=== PATIENT | female | born 1950 | race Caucasian/White ===

== ENCOUNTER 2018-10-02 20:13 | Emergency (ER) | payer OTHER, SELFPAY ==
[2018-10-02 20:28] VITALS: BP 148/77; PULSE 73; RESP 14; TEMP 38; O2SAT 96; BMI 26.6
--- NOTE | 2018-10-02 20:48 | ED.EAR ---
HPI - Ear Problem General Chief complaint: Ear Stated complaint: Right ear pain Time Seen by Provider: 10/02/18 20:35 Source: patient Mode of arrival: ambulatory Limitations: no limitations History of Present Illness HPI Narrative: 68-year-old female here for evaluation of right ear discomfort. She states that it has worsened throughout today after started this morning. She does state that over the past several days she has had other upper respiratory infection like symptoms. No left ear discomfort. Related Data Home Medications Medication Instructions Recorded Confirmed B complex-vitamin C-folic acid 1 tab PO QDAY 08/08/17 08/08/17 [Ruby-Shirlene] Coratin 1 tab PO QDAY 08/08/17 08/08/17 Coratin 2 tab PO QPM 08/08/17 08/08/17 Omegagenics Epa-Dha 720 (Fish Oil) 2 cap PO QDAY 08/08/17 08/08/17 Ubiquinol 200 mg PO QDAY 08/08/17 08/08/17 amlodipine 10 mg PO QDAY 08/08/17 08/08/17 clonidine 1 patch TOPICAL CRUZ 08/08/17 08/08/17 folic acid 1 mg PO QDAY 08/08/17 08/08/17 isosorbide mononitrate 30 mg PO QDAY 08/08/17 08/08/17 nebivolol [Bystolic] 10 mg PO QDAY 08/08/17 08/08/17 thyroid (pork) [Nature-Throid] 1 tab PO QDAY 08/08/17 08/08/17 Allergies Allergy/AdvReac Type Severity Reaction Status Date / Time acetaminophen [From Vicodin] Allergy Verified 08/08/17 11:35 codeine Allergy Verified 08/08/17 11:35 hydrocodone [From Vicodin] Allergy Verified 08/08/17 11:35 lisinopril Allergy Verified 08/08/17 11:35 Sulfa (Sulfonamide Allergy Verified 08/08/17 11:35 Antibiotics) diphenhydramine AdvReac Verified 08/08/17 11:35 [From Benadryl] contrast Allergy Uncoded 08/08/17 11:35 Review of Systems Constitutional Denies fever(s) ENT Ears, Nose, Mouth, and Throat: Reports otalgia (Right), Reports sinus pressure, Denies sore throat and Denies tongue swelling Cardiovascular Denies chest pain and Denies dyspnea Respiratory Denies dyspnea Gastrointestinal Gastrointestinal: Denies abdominal pain Musculoskeletal Denies myalgias and Denies arthralgias Integumentary/Breasts Denies new lesions and Denies rash Neurologic Denies behavioral changes Psychiatric Denies behavioral changes Hematologic/Lymphatic Denies easy bleeding and Denies easy bruising Allergic/Immunologic Denies tongue swelling [facility] Medical History Hypertension (Acute) Hypothyroid (Acute) Social History Smoking Status: Never smoker Social History Smoking Status: Never smoker Exam Initial Vital Signs Initial Vital Signs: Vital Signs Temperature 100.4 F H 10/02/18 20:28 Pulse Rate 73 10/02/18 20:28 Respiratory Rate 14 10/02/18 20:28 Blood Pressure 148/77 H 10/02/18 20:28 Pulse Oximetry 96 10/02/18 20:28 Const General: cooperative, comfortable, well developed, well groomed and No acute distress Orientation: alert, awake and oriented x3 HENMT Head: normal to inspection and normocephalic Ears: TM normal on the left and other (Redness in the upper portion of the right TM) Nose: external nose normal Face and sinus: normal facial exam Mouth: oral mucosae normal Teeth and gingiva: dentition normal Resp Effort & Inspection: normal respiratory effort Skin Lesions: no lesions Rashes: no rashes Neuro General: alert and awake Cognition: normal cognition Speech: speech normal Extrem General: normal to inspection and capillary refill normal Psych Appearance: grossly normal and well kempt Course Vital Signs - 8 hr 10/02/18 20:28 Temperature 100.4 F H Pulse Rate 73 Respiratory Rate 14 Blood Pressure 148/77 H Pulse Oximetry 96 Medical Decision Making MDM Narrative Medical decision making narrative: Patient with redness to the upper portion of the right tympanic membrane. There is no bulging of the TM. The external auditory canals unremarkable. I do suspect her symptoms are related to sinus congestion. We did discuss using decongestants. No indication for antibiotics. Patient was given return precautions and follow-up instructions. She expressed understanding and agreement plan. Discharge Plan Departure Patient Disposition: Home Clinical Impression: Otalgia of right ear Upper respiratory infection Qualifiers: URI type: unspecified URI Qualified Code(s): J06.9 - Acute upper respiratory infection, unspecified Discharge Date/Time: 10/02/18 20:55 Interventions: ED Discharge Assessment Last Done: 10/02/18 20:54 Instructions: DI for Viral Upper Respiratory Infection -- Adult, DI for Ear Pain-Adult Activity Restrictions/Additional Instructions: I recommend you start taking Claritin or Gini or Zyrtec like we discussed. You can also take the generic version of these medications. You can consider taking either Flonase or Nasonex as a nasal spray. You can also take Tylenol or ibuprofen for any pain. Return to the emergency department for any new or worsening symptoms Prescriptions: No Action clonidine 0.1 mg/24 hr patch weekly 1 patch Topical CRUZ RF: 0 amlodipine 10 mg tablet 10 mg PO QDAY RF: 0 nebivolol [Bystolic] 10 mg tablet 10 mg PO QDAY RF: 0 isosorbide mononitrate 30 mg tablet extended release 24 hr 30 mg PO QDAY RF: 0 folic acid 1 mg tablet 1 mg PO QDAY RF: 0 B complex-vitamin C-folic acid [Ruby-Shirlene] 0.8 mg tablet 1 tab PO QDAY RF: 0 thyroid (pork) [Nature-Throid] 65 mg tablet 1 tab PO QDAY RF: 0 Coratin tablet 2 tab PO QPM RF: 0 Coratin tablet 1 tab PO QDAY RF: 0 Omegagenics Epa-Dha 720 (Fish Oil) 2 cap PO QDAY RF: 0 Ubiquinol 200 mg tablet 200 mg PO QDAY RF: 0 Referrals: Genevieve Sen ND [Primary Care Provider] -
== END 2018-10-02 20:55 | disposition home or self-care (01) ==
PROVIDERS: Emergency Provider Emergency Medicine; PCP Naturopath
DX: H92.01 Otalgia, right ear (principal); J06.9 Acute upper respiratory infection, unspecified
CPT/HCPCS: 99282

== ENCOUNTER 2020-07-28 11:17 | Emergency (ER) | payer OTHER, SELFPAY ==
[2020-07-28 11:33] VITALS: BP 186/86; PULSE 78; RESP 14; TEMP 36.5; O2SAT 98
--- NOTE | 2020-07-28 12:24 | PC.NURSE ---
patient states she has a rash on her face. Rash is not visualized by this nurse. She states her face does not usually look like this. Provider at bedside.
--- NOTE | 2020-07-28 12:25 | ED.SKABFB ---
HPI - Skin/Abscess/Foreign Bdy General Chief complaint: Skin/Abscess/Foreign Body Stated complaint: rash on face Time Seen by Provider: 07/28/20 12:15 Source: patient Mode of arrival: Ambulatory Limitations: no limitations History of Present Illness HPI narrative: 69-year-old female here for evaluation of rash on her face. She stated that she started noticing it this morning. She has had no new exposures. No sick contacts. No problems breathing. No nausea or vomiting. She said that it was itching this morning and she felt like she had dry skin so she put some lotion over the area and that seems to have improved it. No vesicles. It is both sides of her face. Related Data Home Medications Medication Instructions Recorded Confirmed B complex-vitamin C-folic acid 1 tab PO QDAY 08/08/17 08/08/17 [Ruby-Shirlene] Coratin 1 tab PO QDAY 08/08/17 08/08/17 Coratin 2 tab PO QPM 08/08/17 08/08/17 Omegagenics Epa-Dha 720 (Fish Oil) 2 cap PO QDAY 08/08/17 08/08/17 Ubiquinol 200 mg PO QDAY 08/08/17 08/08/17 amlodipine 10 mg PO QDAY 08/08/17 08/08/17 clonidine 1 patch TOPICAL CRUZ 08/08/17 08/08/17 folic acid 1 mg PO QDAY 08/08/17 08/08/17 isosorbide mononitrate 30 mg PO QDAY 08/08/17 08/08/17 nebivolol [Bystolic] 10 mg PO QDAY 08/08/17 08/08/17 thyroid (pork) [Nature-Throid] 1 tab PO QDAY 08/08/17 08/08/17 Previous Rx's Medication Instructions Recorded prednisone 20 mg PO DAILY 3 Days #3 tab 07/28/20 Allergies Allergy/AdvReac Type Severity Reaction Status Date / Time codeine Allergy Verified 08/08/17 11:35 hydrocodone [From Vicodin] Allergy Verified 08/08/17 11:35 lisinopril Allergy Verified 08/08/17 11:35 Sulfa (Sulfonamide Allergy Verified 08/08/17 11:35 Antibiotics) diphenhydramine AdvReac Verified 08/08/17 11:35 [From Benadryl] contrast Allergy Uncoded 08/08/17 11:35 Review of Systems Constitutional Constitutional: Denies fatigue and Denies headache(s) Eyes Eyes: Denies blurry vision, Denies change in vision and Denies itchy eyes ENT Ears, Nose, Mouth, and Throat: Denies headache(s), Denies lip swelling, Denies sinus pain, Denies sore throat and Denies throat swelling Cardiovascular Cardiovascular: Denies chest pain and Denies dyspnea Respiratory Respiratory: Denies dyspnea Gastrointestinal Gastrointestinal: Denies abdominal pain, Denies nausea and Denies vomiting Genitourinary Genitourinary: Denies dysuria Genitourinary: Denies dysuria Integumentary/Breasts Skin/Breast: Reports rash Neurologic Neurologic: Denies behavioral changes and Denies headache(s) Psychiatric Psychiatric: Denies behavioral changes Endocrine Endocrine: Denies fatigue Hematologic/Lymphatic On Anticoagulants: No Allergic/Immunologic Allergic/Immunologic: Denies urticaria, Denies itchy eyes, Denies lip swelling and Denies throat swelling Patient History Medical History Hypertension Hypothyroid Social History Smoking Status: Never smoker Smoking Status: Never smoker alcohol intake frequency: 0-2 drinks per day Substance Use Type: does not use Exam Initial Vital Signs Initial Vital Signs: Vital Signs Temperature 97.7 F 07/28/20 11:33 Pulse Rate 78 07/28/20 11:33 Respiratory Rate 14 07/28/20 11:33 Blood Pressure 186/86 H 07/28/20 11:33 Pulse Oximetry 98 07/28/20 11:33 Const General: cooperative, comfortable and well developed Limitations: mental status not altered [facility] Head: normal to inspection and normocephalic Eyes General: appearance normal, both eyes and all related structures Skin Other: Mild redness bilateral face to include cheeks and mandible and neck. Neuro General: patient alert, patient awake and patient oriented x3 Cognition: normal cognition Speech: speech normal Extrem General: normal to inspection and capillary refill normal Psych Appearance: grossly normal and well kempt Course Vital Signs Vital signs: Vital Signs - 8 hr 07/28/20 11:33 07/28/20 12:30 Temperature 97.7 F Pulse Rate 78 60 Respiratory Rate 14 19 Blood Pressure 186/86 H 153/69 H Pulse Oximetry 98 98 MDM - Skin/Abscess/Foreign Bdy MDM Narrative Medical decision making narrative: Patient does have very mild redness both sides of her face. There are no vesicles concerning for zoster. Does not know the exact cause of the symptoms. She is afebrile. No signs of anaphylaxis. She would like to hold on any prednisone for now because she had been on in the past secondary to a prior cancer diagnosis. Will give her prescription just in case her symptoms do not improve. She states she cannot take Benadryl because it gives her rash. I feel patient could be discharged home without further workup. She was given return precautions. She expressed understanding and agreement. Discharge Plan Departure Patient Disposition: Home Clinical Impression: Rash Instructions: DI for Rash Activity Restrictions/Additional Instructions: I recommend that you keep your face moisturize like we discussed. Use the prednisone if your symptoms do not improve like we discussed. Contact your primary provider for follow-up. Return to the emergency department for any new or worsening symptoms Prescriptions: New prednisone 20 mg tablet 20 mg PO DAILY 3 Days Qty: 3 RF: 0 No Action clonidine 0.1 mg/24 hr patch weekly 1 patch Topical CRUZ RF: 0 amlodipine 10 mg tablet 10 mg PO QDAY RF: 0 nebivolol [Bystolic] 10 mg tablet 10 mg PO QDAY RF: 0 isosorbide mononitrate 30 mg tablet extended release 24 hr 30 mg PO QDAY RF: 0 folic acid 1 mg tablet 1 mg PO QDAY RF: 0 B complex-vitamin C-folic acid [Ruby-Shirlene] 0.8 mg tablet 1 tab PO QDAY RF: 0 thyroid (pork) [Nature-Throid] 65 mg tablet 1 tab PO QDAY RF: 0 Coratin tablet 2 tab PO QPM RF: 0 Coratin tablet 1 tab PO QDAY RF: 0 Omegagenics Epa-Dha 720 (Fish Oil) 2 cap PO QDAY RF: 0 Ubiquinol 200 mg tablet 200 mg PO QDAY RF: 0 Referrals: Genevieve Sen [place] [Primary Care Provider] -
[2020-07-28 12:30] VITALS: BP 153/69; PULSE 60; RESP 19; O2SAT 98
== END 2020-07-28 12:33 | disposition home or self-care (01) ==
PROVIDERS: Emergency Provider Emergency Medicine; PCP Naturopath
DX: R21 Rash and other nonspecific skin eruption (principal)
CPT/HCPCS: 99281

== ENCOUNTER 2024-07-12 14:34 | Emergency (ER) | payer OTHER, SELFPAY ==
[2024-07-12 14:43] VITALS: BP 128/63; PULSE 78; RESP 18; TEMP 36.7; O2SAT 99; BMI 25.4
--- NOTE | 2024-07-12 14:59 | DI.RAD.S_ITS ---
PROCEDURE: XR CHEST 2V INDICATIONS: cough, fatigue, fever TECHNIQUE: 2 views of the chest were acquired. COMPARISON: None. FINDINGS: Surgical changes and devices: None. Lungs and pleura: Lungs are clear. No pleural effusions or pneumothorax. Mediastinum: Mediastinal contours are normal. Heart size is normal. Bones and chest wall: No suspicious bony abnormalities. Soft tissues appear unremarkable. IMPRESSION: No acute cardiopulmonary abnormality is seen. Approved by: Jim Bennett M.D. on 07/12/2024 at 15:33
[2024-07-12 15:43] LABS: Influenza A - CEPHEID Flu A NEGATIVE (NEGATIVE); Influenza B - CEPHEID Flu B NEGATIVE (NEGATIVE); Respiratory Syncytial Virus Negative (Negative)
[2024-07-12 15:49] LABS: COVID-19 CEPHEID 4-PLEX PCR Negative (Negative)
--- NOTE | 2024-07-12 17:39 | PC.NURSE ---
Pt reports 12 days of cough, fever,loose stool, body aches, increase in lymphedema. Pt states she saw her kidney doctor 2 weeks ago; denies being in contact with anyone sick. States is not sick. Pt reports history of uterine cancer that has affected her kidneys and lower extremities.
--- NOTE | 2024-07-12 17:46 | ED_ITS ---
<Statement entered by Tyshawn Tadeo DO - 07/12/24 20:47> Dr. Tadeo: I was immediately available in the department for consultation. I did not actually see the patient. HPI - URI/Sore Throat General Chief Complaint: Upper Respiratory Symptoms Stated Complaint: Cough, body aches Time Seen by Provider: 07/12/24 17:34 Source: patient Mode of arrival: Ambulatory History of Present Illness HPI Narrative: Ms. Golden is a very pleasant 73-year-old female with a past medical history of uterine cancer, autoimmune hemolytic anemia, HTN, CKD, bilateral lower extremity lymphedema who presents to the emergency department for nocturnal fevers, fatigue, body aches, cough x 12 days. Chronic lower extremity lymphedema is secondary to pelvic lymph node resection during prior episode of urine cancer. Patient denies any known sick contacts. Reports that every evening she has an elevated temperature of about 101 but it normalizes during the day. Reports feeling severe dyspnea on exertion but her shortness of breath resolves as soon as she sits still or lays flat. She notices that her lower leg swelling is worse in her lower legs are hurting more. She reports a dry cough, scratchy throat, chills, mild headache, scalp sensitivity, sweating, low appetite, loose bowels, leg weakness. She denies chest pain, shortness of breath at rest, pain or redness of a unilateral leg, abdominal pain, nausea, vomiting, constipation, dysuria. Denies sore throat, ear pain. Her primary care doctor is a naturopathic doctor, Dr. Genevieve Sen, and her oven dumper is Dr. El Beck. Related Data Home Medications Medication Instructions Recorded Confirmed Coratin 1 tab PO QDAY 08/08/17 08/08/17 Coratin 2 tab PO QPM 08/08/17 08/08/17 Omegagenics Epa-Dha 720 (Fish Oil) 2 cap PO QDAY 08/08/17 08/08/17 Ubiquinol 200 mg PO QDAY 08/08/17 08/08/17 amlodipine 10 mg tablet 10 mg PO QDAY 08/08/17 08/08/17 clonidine 0.1 mg/24 hr weekly 1 patch topical CRUZ 08/08/17 08/08/17 transdermal patch folic acid 1 mg tablet 1 mg PO QDAY 08/08/17 08/08/17 isosorbide mononitrate 30 mg 30 mg PO QDAY 08/08/17 08/08/17 tablet,extended release 24 hr nebivolol 10 mg tablet 10 mg PO QDAY 08/08/17 08/08/17 thyroid (pork) 65 mg tablet 1 tab PO QDAY 08/08/17 08/08/17 vitamin B complex-vitamin C-folic 1 tab PO QDAY 08/08/17 08/08/17 acid 0.8 mg tablet Previous Rx's Medication Instructions Recorded cephalexin 500 mg capsule 500 mg PO Q12H 7 days #14 caps 07/12/24 Allergies Allergy/AdvReac Type Severity Reaction Status Date / Time codeine Allergy Verified 08/08/17 11:35 hydrocodone [From Vicodin] Allergy Verified 08/08/17 11:35 lisinopril Allergy Verified 08/08/17 11:35 Sulfa (Sulfonamide Allergy Verified 08/08/17 11:35 Antibiotics) diphenhydramine AdvReac Verified 08/08/17 11:35 [From Benadryl] contrast Allergy Uncoded 08/08/17 11:35 Review of Systems Review of Systems ROS Unobtainable: All systems reviewed & are unremarkable except as noted in HPI and below Patient History Medical History Hypothyroid Hypertension Social History Smoking Status: Never smoker Smoking Status: Never smoker alcohol intake frequency: 0-2 drinks per day Exam Narrative Exam Narrative: GENERAL: 73 year old patient appears stated age. Well-developed patient, in no acute distress. HEAD: Atraumatic. Normocephalic. EYES:No scleral icterus. No injection or drainage. ENT: Nose without bleeding, purulent drainage. Throat without erythema, tonsillar hypertrophy or exudate. Airway patent. NECK: Trachea midline. Cervical ROM intact. CARDIOVASCULAR: Regular rate and rhythm. RESPIRATORY: ?Nonlabored respirations. ?Speaking in clear, full sentences. ?Clear to auscultation. Breath sounds equal bilaterally. No wheezes, rales, or rhonchi. ? GASTROINTESTINAL: Abdomen soft, non-tender, nondistended. EXTREMITIES: Bilateral, nonpitting lower extremity edema. No erythema or increased warmth of the lower extremities. There strong palpable DP and PT pulses bilaterally. NEURO: AOx3. ?Clear speech. ?Moves all 4 extremities appropriately. Ambulates independently. SKIN: Pale. No rash or erythema of visible areas Initial Vital Signs Initial Vital Signs: Vital Signs Temperature 98.0 F 07/12/24 14:43 Pulse Rate 78 07/12/24 14:43 Respiratory Rate 18 07/12/24 14:43 Blood Pressure 128/63 07/12/24 14:43 Pulse Oximetry 99 07/12/24 14:43 Oxygen Delivery Method Room Air 07/12/24 14:43 Course Orders Ordered: ED Orders 07/12/24 14:50 Covid-19 + FLU A/B + RSV - PCR Stat 07/12/24 14:59 XR chest 2V Stat 07/12/24 18:02 Complete Blood Count AUTO DIFF Stat Comprehensive Metabolic Panel Stat Lactate (Lactic Acid) Stat NT-proBNP (BNP-Adult 18+) Stat PTT Partial Thromboplastin [place] Stat Procalcitonin Stat Prothrombin Time INR Stat Troponin & CK Cardiac Panel Stat Urinalysis and Microscopic Stat Urine Culture Stat EKG-12 Lead Stat 07/12/24 18:25 Blood Culture Stat Sodium Chloride (Normal Saline 0.9%) 1,000 mls @ 1,000 mls/hr IV BOLUS ONE Stop: 07/12/24 20:08 Discontinued Medications Ceftriaxone Sodium 1,000 mg/ (Sodium Chloride) 100 mls @ 200 mls/hr IV NOW ONE Stop: 07/12/24 19:10 Vital Signs Vital signs: Vital Signs - 8 hr 07/12/24 14:43 07/12/24 18:43 Temperature 98.0 F 98.3 F Pulse Rate 78 76 Respiratory Rate 18 16 Blood Pressure 128/63 114/64 Pulse Oximetry 99 100 Oxygen Delivery Method Room Air Room Air MDM - URI/Sore Throat Medical Records Attestation: I reviewed the patient's medical records. Medical records narrative: ED visit 08/08/2017, 10/02/2018, 07/28/2020. Lab Data 07/12/24 18:02 07/12/24 18:02 Labs: Lab Results 07/12/24 07/12/24 Range/Units 14:50 18:02 WBC 9.9 (4.5-11.0) X10^3/uL RBC 4.00 (4.0-5.2) X10^6/uL Hgb 12.0 (12.0-16.0) g/dL Hct 35.7 L (36-46) % MCV 89.3 (80-100) fL MCH 30.0 (26-34) PG MCHC 33.6 (30-36) % RDW 13.1 (11.6-14.8) % Plt Count 354 (150-400) X10^3/uL Neut % (Auto) 73.7 (50-75) % Lymph % (Auto) 14.3 L (25-40) % [place] % (Auto) 10.9 (3-14) % Eos % (Auto) 0.4 L (2-4) % Baso % (Auto) 0.7 (0-2) % Neut # (Auto) 7300 H (8123-1481) /uL Lymph # (Auto) 1400 (6108-4704) /uL [place] # (Auto) 1100 H (0-900) /uL Eos # (Auto) 0 (0-450) /uL Baso # (Auto) 100 (0-100) /uL PT 13.4 H (9.4-12.5) SECONDS INR 1.2 (0.9-1.3) APTT 34 (25.1-36.5) SECONDS Sodium 136 L (137-145) mmol/L Potassium 5.3 H (3.4-5.1) mmol/L Chloride 103 (98-107) mmol/L Carbon Dioxide 23 (22-32) mmol/L BUN 46 H (7-17) mg/dL Creatinine 1.80 H (0.52-1.04) mg/dL Estimated GFR 29 L (>60) mL/min BUN/Creatinine Ratio 25.6 H (6-22) Glucose 101 (80-110) mg/dL Lactate 1.2 (0.7-2.1) mmol/L Calcium 9.2 (8.4-10.2) mg/dL Total Bilirubin 0.9 (0.2-1.3) mg/dL AST 171 H (14-36) IU/L ALT 172 H (<35) IU/L Alkaline Phosphatase 81 (38-126) U/L Total Creatine Kinase 31 (30-135) U/L Troponin I < 0.012 (0.01-0.034) ng/mL NT-Pro-B Natriuret Pep 602 H (<450) pg/mL Total Protein 7.0 (6.3-8.2) g/dL Albumin 3.8 (3.5-5.0) g/dL Globulin 3.2 (1.7-4.1) g/dL Albumin/Globulin Ratio 1.2 (1.0-2.8) Procalcitonin 0.176 (<0.5) ng/mL Urine Color Yellow Urine Appearance Clear Urine pH 5.5 (4.5-8.0) Ur Specific [place] 1.025 (1.000-1.035) Urine Protein 2+ H (Negative) Urine Glucose (UA) Negative (Negative) g/dL Urine Ketones Trace H (NEGATIVE) Urine Occult Blood Negative (Negative) Urine Nitrate Positive H (Negative) Urine Bilirubin Negative (NEGATIVE) Urine Urobilinogen 1.0 (0.2) E.U./dL Ur Leukocyte Esterase Negative (NEGATIVE) Urine RBC None seen (0-5/HPF) Urine WBC 5-10/hpf H (0-5/HPF) Ur Squamous Epith Cells 1-5 /hpf (0-5/HPF) Amorphous Sediment 1+ Urine Bacteria Many (>30) H (None) Ur Culture Indicated? Specimen cultured Vol Urine Centrifuged 10ml (spun) SARS-CoV-2 (PCR) Negative (Negative) Influenza A (RT-PCR) Flu a negative (NEGATIVE) Influenza B (RT-PCR) Flu b negative (NEGATIVE) RSV (PCR) Negative (Negative) Imaging Data Chest x-ray: Radiologist's Impression: PROCEDURE: XR CHEST 2V INDICATIONS: cough, fatigue, fever TECHNIQUE: 2 views of the chest were acquired. COMPARISON: None. FINDINGS: Surgical changes and devices: None. Lungs and pleura: Lungs are clear. No pleural effusions or pneumothorax. Mediastinum: Mediastinal contours are normal. Heart size is normal. Bones and chest wall: No suspicious bony abnormalities. Soft tissues appear unremarkable. IMPRESSION: No acute cardiopulmonary abnormality is seen. MDM Narrative Medical decision making narrative: 73-year-old female with a past medical history of uterine cancer, autoimmune hemolytic anemia, HTN, CKD, bilateral lower extremity lymphedema who presents to the emergency department for nocturnal fevers, fatigue, body aches, cough x 12 days. Differential diagnosis includes but is not limited to anemia, neutropenia, pneumonia, viral syndrome, tuberculosis, CHF, fluid overload, etc. On exam patient is in no acute distress, nontoxic appearing, initial triage vital signs all within normal limits. She does become visibly short of breath with exertion but has no increased work of breathing sitting at rest. She is bilateral lower extremity nonpitting edema, no signs of cellulitis, nontender, she is strong peripheral pulses. Viral swab and chest x-ray were obtained in triage and are both negative. Concern for persistent nocturnal fevers and a patient with a history of cancer, increased lower extremity edema and dyspnea on exertion. We will check CBC, CMP, BNP, troponin, EKG, blood cultures. Labs reveal normal WBC count 9.9. Hemoglobin 12.0. Sodium 136, potassium slightly elevated at 5.3, BUN 46, creatinine 1.8, GFR 29. No baseline labs available for review. Patient does admit to a history of CKD and was told by her oven dumper recently her kidney fucntion was worsneing. Her lactate is normal at 1.2. AST and ALT are both elevated at 171 172 respectively, no abdominal pain, nausea, vomiting, right upper quadrant tenderness. BNP mildly elevated at 602. Troponin is negative. Procalcitonin is negative. Urinalysis is concerning for infection with many bacteria, 5-10 WBCs, positive for nitrites. This time I believe symptoms are related to UTI in addition to likely acute on chronic renal failure. BNP is also mildly elevated. Discussed case with nighttime ED attending Dr. Echeverria, we will proceed with 1 L IV fluids for renal function and also treat with antibiotics for UTI. Advised patient follow up with PCP for repeat labs including renal and liver function. I also advised patient to have outpatient echocardiogram. We will treat with Keflex 500 mg b.i.d. x7 days pending urine culture due to patient's renal function. Patient and verbalized understanding of all information agreeable to this plan. Strict ED return precautions discussed and prompt PCP follow up advised. She verbalized understanding of all information and is stable for discharge home. Discharge Plan Departure Patient Disposition: Home Clinical Impression: Acute UTI, Elevated brain natriuretic peptide (BNP) level, Transaminitis CKD (chronic kidney disease) Qualifiers: Chronic kidney disease stage: unspecified stage Qualified Code(s): N18.9 - Chronic kidney disease, unspecified Instructions: Chronic Kidney Disease, DI for Urinary Tract Infection (UTI) Activity Restrictions/Additional Instructions: Dear Ms. Golden, Thank you for coming to the emergency department. Today your workup revealed worsening kidney function and a slightly elevated potassium which you were given 1 L of IV fluids for. Your urine test was also concerning for infection. Please complete the full course of antibiotics. It is extremely important to follow up with the primary care provider for further evaluation and to have labs rechecked and also we recommend that you have an echocardiogram for further evaluation of cardiac function given your worsening lower extremity swelling. Please return to the emergency department if you develop any new or worsening symptoms, difficulty breathing, chest pain, persistent fevers, abdominal pain, vomiting or any other concerns. Please follow up with your primary care doctor within the next 2-3 days for ER follow-up. (If you do not have a PCP you can call [phone]. ?to schedule an appointment with an [facility] Primary Care Provider) IF YOU DEVELOP ANY NEW OR WORSENING SYMPTOMS, RETURN TO THE ER! Please read the attached instructions, they highlight more specific treatments and interventions for you at home. Thank you for letting me participate in your care, Susy Camp PA-C Prescriptions: New cephalexin 500 mg capsule 500 mg PO Q12H 7 Days Qty: 14 0RF No Action clonidine 0.1 mg/24 hr patch weekly 1 patch Topical CRUZ Patient Comments: generally on Tuesday. patient states due to injury of feet forgot and changed today amlodipine 10 mg tablet 10 mg PO QDAY nebivolol [Bystolic] 10 mg tablet 10 mg PO QDAY isosorbide mononitrate 30 mg tablet extended release 24 hr 30 mg PO QDAY folic acid 1 mg tablet 1 mg PO QDAY B complex-vitamin C-folic acid [Ruby-Shirlene] 0.8 mg tablet 1 tab PO QDAY Patient Comments: take 1 tablet by mouth once daily thyroid (pork) [Nature-Throid] 65 mg tablet 1 tab PO QDAY Patient Comments: TK 1 T PO ONE HOUR BEFORE FOOD EVERY MORNING Coratin tablet 2 tab PO QPM Coratin tablet 1 tab PO QDAY Omegagenics Epa-Dha 720 (Fish Oil) 2 cap PO QDAY Ubiquinol 200 mg tablet 200 mg PO QDAY Referrals: Genevieve Sen ND [Primary Care Provider] - Stand Alone Forms: Patient Portal/API/Survey
[2024-07-12 18:18] LABS: Add Manual Diff / Slide Review NO; Basophils Absolute Auto 100 /uL (0-100); Basophils Percent Auto 0.7 % (0-2); Eosinophils Absolute Auto 0 /uL (0-450); Eosinophils Percent Auto 0.4 % (2-4); Hematocrit 35.7 % (36-46); Lymphocytes Absolute Auto 1400 /uL (1100-4500); Lymphocytes Percent Auto 14.3 % (25-40); Mean Corpuscular HGB Conc 33.6 % (30-36); Mean Corpuscular Volume 89.3 fL (80-100); Monocytes Absolute Auto 1100 /uL (0-900); Monocytes Percent Auto 10.9 % (3-14); Neutrophils Absolute Auto 7300 /uL (1500-7000); Neutrophils Percent Auto 73.7 % (50-75); Platelet Count 354 X10^3/uL (150-400); Red Cell Distribution Width 13.1 % (11.6-14.8); White Blood Cell Count 9.9 X10^3/uL (4.5-11.0)
[2024-07-12 18:25] LABS: Appearance Urine UA CLEAR; Bilirubin Urine UA NEGATIVE (NEGATIVE); Color Urine UA YELLOW; Glucose Urine UA NEGATIVE (Negative); Ketones Urine UA TRACE (NEGATIVE); Leukocyte Esterase Urine UA NEGATIVE (NEGATIVE); Nitrite Urine UA POSITIVE (Negative); Occult Blood Urine UA NEGATIVE (Negative); Protein Urine UA 2+ (Negative); Specific Gravity Urine UA 1.025 (1.000-1.035)
[2024-07-12 18:28] LABS: INR 1.2 (0.9-1.3); Prothrombin Time 13.4 SECONDS (9.4-12.5)
[2024-07-12 18:33] LABS: Alanine Aminotransferase 172 IU/L (<35); Albumin 3.8 g/dL (3.5-5.0); Albumin Globulin Ratio 1.2 (1.0-2.8); Alkaline Phosphatase 81 U/L (38-126); Aspartate Aminotransferase 171 IU/L (14-36); BUN Creatinine Ratio 25.6 (6-22); Bilirubin Total 0.9 mg/dL (0.2-1.3); Blood Urea Nitrogen 46 mg/dL (7-17); Calcium 9.2 mg/dL (8.4-10.2); Carbon Dioxide 23 mmol/L (22-32); Chloride 103 mmol/L (98-107); Creatine Kinase 31 U/L (30-135); Estimated Glomerular Filt Rate 29 mL/min (>60); Globulin 3.2 g/dL (1.7-4.1); Glucose 101 mg/dL (80-110); HEMOLYSIS 30 (0-50); Lactate (Lactic Acid) 1.2 mmol/L (0.7-2.1); Potassium 5.3 mmol/L (3.4-5.1); Sodium 136 mmol/L (137-145); pH Urine UA 5.5 (4.5-8.0)
[2024-07-12 18:35] LABS: Bacteria Urine Many (>30); RBC Urine None Seen (0-5/HPF); Urine Volume 10mL (spun); WBC Urine 5-10/HPF (0-5/HPF)
--- NOTE | 2024-07-12 18:35 | EKG_ITS ---
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
[2024-07-12 18:36] LABS: Amorphous Sediment Urine 1+; Culture Indicated Urine Specimen Cultured; PTT Partial Thromboplastin Tim 34 SECONDS (25.1-36.5); Squamous Epithelial Cell Urine 1-5 /HPF (0-5/HPF)
[2024-07-12 18:43] VITALS: BP 114/64; PULSE 76; RESP 16; TEMP 36.8; O2SAT 100
[2024-07-12 18:45] LABS: NT-proBNP (BNP-Adult 18+) 602 pg/mL (<450); Troponin I < 0.012 ng/mL (0.01-0.034)
[2024-07-12 18:50] LABS: Procalcitonin 0.176 ng/mL (<0.5)
[2024-07-12] MEDS: cefTRIAXone 1,000 MG in SODIUM CHLORIDE 0.9% 100 ML 200 MG IV (19:32)
[2024-07-12] MEDS: SODIUM CHLORIDE 0.9% 1,000 ML 1000 ML IV (19:32)
[2024-07-12 20:35] VITALS: BP 132/64; PULSE 74; RESP 18; O2SAT 98
== END 2024-07-12 20:35 | disposition home or self-care (01) ==
PROVIDERS: Emergency Medicine; Emergency Provider Physician Assistant; PCP Naturopath
DX: N39.0 Urinary tract infection, site not specified (principal); N18.9 Chronic kidney disease, unspecified; R74.01 Elevation of levels of liver transaminase levels; I12.9 Hypertensive chronic kidney disease with stage 1 through stage 4 chronic kidney disease, or unspecified chronic kidney disease; R74.8 Abnormal levels of other serum enzymes; R06.02 Shortness of breath; R60.0 Localized edema; Z85.42 Personal history of malignant neoplasm of other parts of uterus
CPT/HCPCS: 0241U; 71046; 80053; 81001; 82550; 83605; 83880; 84145; 84484; 85025; 85610; 85730; 87040; 87077; 87086; 87186; 93005; 96361; 96365; 99283; 99284; J0696